=== PATIENT | male | born 1940 | race Caucasian/White ===

== ENCOUNTER → 2018-10-28 | Outpatient (CLI) | payer MEDICARE, BC ==
[~2018-10-28] MED LIST: ACYCLOVIR 200200 MG PO; APAP500 PO; ASPIRIN81 M2 PO; BAYER CHEWABLE81 MG PO; CIPRO500 MG PO; LOPID600 MG PO; MAGNESIUM250 M1 PO; MAGNESIUM500 MG PO; MULTIVITAMINS PO; MULTIVITAMINS1 EAC7 PO; PRED FORTE 1% EY5 M1 OP; PREDNISONE 5 MG5 M1 PO; SODIUM CHLORIDE10 ML; XANAX2 MG PO; ZIRGAN5 GM OP; ZIRGAN5 GM OPHTHALMIC; ZOVIRAX OPHTHALMIC; ZOVIRAX800 MG PO
== END ==
LOC: M.RAD 10-21 11:22
DX: M51.16 Intervertebral disc disorders with radiculopathy, lumbar region (principal); M48.061 Spinal stenosis, lumbar region without neurogenic claudication; M47.26 Other spondylosis with radiculopathy, lumbar region; M85.89 Other specified disorders of bone density and structure, multiple sites

== ENCOUNTER 2019-01-31 18:07 | Emergency (ER) | payer MEDICARE, BC ==
[~2019-01-31] VITALS: Ht 177.8 cm; Wt 82.6 kg
[2019-01-31] MEDS ORDERED: XANAX 0.5 MG0.5 MG PO (18:28)
[2019-01-31] MEDS ORDERED: VIGAMOX3 ML TOP (19:13)
[2019-01-31 19:28] VITALS: BP 132/82
== END 2019-01-31 19:29 | disposition home or self-care (01) ==
LOC: M.ERS 18:07
DX: H10.9 Unspecified conjunctivitis (principal); E78.00 Pure hypercholesterolemia, unspecified; Z87.442 Personal history of urinary calculi; Z85.51 Personal history of malignant neoplasm of bladder

== ENCOUNTER 2019-04-13 07:00 | Inpatient (IN) | payer MEDICARE, BC ==
[2019-04-02 08:50] LABS: ABSOLUTE EOSINOPHILS 0.1 thou/uL (0.0-0.7); ABSOLUTE LYMPHOCYTES 5.6 thou/uL (0.8-5.3); ABSOLUTE MONOCYTES 0.9 thou/uL (0.0-1.2); ABSOLUTE NEUTROPHILS 5.8 thou/uL (1.6-8.1); BASOPHILS 0.3 %; EOSINOPHILS 1.2 %; HEMATOCRIT 45.2 % (42.0-52.0); HEMOGLOBIN 15.2 gm/dL (14.0-18.0); LYMPHOCYTES 44.7 %; MCH 30.8 pg (26.0-34.0); MCHC 33.6 g/dL (28.0-37.0); MCV 91.5 fL (80.0-100.0); MONOCYTES 7.4 %; MPV 8.7 fl. (7.2-11.1); NUCLEATED RBCS 0 /100WBC; PLATELET COUNT* 252 thou/uL (150-400); POLYS 46.4 %; RBC 4.94 mil/uL (4.50-6.00); RDW-CV 14.3 % (10.5-14.5); WBC 12.4 thou/uL (4.0-11.0)
[2019-04-02 08:56] LABS: PROTIME 10.7 Seconds (9.20-11.50)
[2019-04-02 09:07] LABS: CALCIUM 9.5 mg/dL (8.5-10.1); CREATININE 1.2 mg/dL (0.6-1.3); POTASSIUM 4.1 mmol/L (3.5-5.1); TOTAL BILIRUBIN 0.6 mg/dL (<0.1-1.0); TOTAL PROTEIN 7.8 g/dL (6.4-8.2)
[2019-04-02 10:36] LABS: ESR (SEDRATE) 5 mm/hr (0-20)
--- NOTE | 2019-04-02 11:55 | EKG ---
[place] [address] ELECTROCARDIOGRAM REPORT Name: FABRIZIO LEE Room: PRE IN [facility].#: [id number] Admission: Attend Phys: Karen Jung Discharge: Date of : 36 Report #: [id number] THIS REPORT FOR: //name// [facility] Test Date: 2019-04-02 Test Time: 09:01:43 Pat Name: FABRIZIO LEE Department: Room: Gender: M Supervisor Inspection: : 1940 Requested By: Philip Hammer Order Number: [id number] MD: Harrison Vaughan Measurements Intervals [place] Rate: 71 P: 29 ND: 180 QRS: -5 QRSD: 144 T: 17 QT: 397 QTc: 432 Interpretive Statements Sinus rhythm Right bundle branch block Compared to ECG 10/27/2013 07:47:51 Sinus bradycardia no longer present Electronically Signed On 04-02-2019 11:55:30 CDT by Harrison Vaughan [email or web address] <ELECTRONICALLY SIGNED> By: Marina Vaughan MD, [facility] 04/02/19 1155 0901 0 Marina Vaughan MD, FACC /EPI
[~2019-04-13] VITALS: Ht 177.8 cm; Wt 83.5 kg
--- NOTE | ~2019-04-13 | OP ---
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 PROCEDURE PERFORMED: Right total hip arthroplasty. SURGEON: Philip Hammer D.O. NURSING PROGRAM MANAGER: Boyd Abdi D.O. ANESTHESIA: General and local. ESTIMATED BLOOD LOSS: 275 mL. SPECIMENS: None. COMPLICATIONS: None. DISPOSITION: Stable to PACU. IMPLANTS USED: Biomet total hip system with a 58 mm G7 shell, a size 16 high offset femoral stem, a -3 mm neck, and a high wall polyethylene liner. INDICATIONS FOR PROCEDURE: The patient is a pleasant 79-year-old male who has known degenerative joint disease of the right hip, which he has treated with conservative measures and these have failed. He continues to have pain, which affects his ADLs and he is becoming more sedentary. We discussed risks, benefits, complications, alternatives, and indications with him. He voiced understanding and wished to proceed with surgery. DESCRIPTION OF PROCEDURE: The patient was seen in the preoperative holding area. Correct operative site was marked. Verbal and written consents were obtained. He was transferred to the operative suite and placed supine on the operating table, given the benefit of general anesthesia by the Anesthesia team. Right hip was then prepped and draped in a normal sterile [place] [id number] OPERATIVE REPORT Name: Susan LEE Room: [address] IN [facility]#: [id number] Admission: 04/13/19 Attend Phys: Karen Jung Discharge: Date of : 36 Report #: [id number] performed. All those in attendance were in agreement with the correct operative site and procedure to be performed. A #12 blade scalpel was used to incise the skin at the appropriate level. This was taken down to the tensor fascia guillermo using electrocautery. I then used a new #10 blade scalpel to incise the fascia and this was released both proximally and distally using Metzenbaum scissors. Blunt dissection was then carried down to the level of the anterior hip and a #7 retractor was placed in the superior neck as well as a #6 retractor in the inferior neck. We then fully cauterized the circumflex vessels. Actually, these were bluntly dissected and these were then cauterized using electrocautery. The anterior capsule was then fully cauterized, then a Grimaldo was used to reflect the indirect head of the rectus and a #9 retractor was placed on the anterior acetabulum. The anterior capsule was then excised using electrocautery and retractors were once again placed on the superior and inferior neck appropriately. We then used an oscillating saw to perform a femoral neck cut and femoral head was removed. We then used electrocautery to obliterate and cauterize the fovea and labrum was excised using electrocautery as well. A thorough sterile irrigation was used and a reamer was placed for appropriate size shell. Fluoroscopy was used to verify depth and positioning of this and then a final 58-mm stem shell was malleted into place. Appropriate length 25 and 30-mm screws were then placed and verified via fluoroscopy. A high wall liner was malleted into place, found to be stable. We then turned our attention to the proximal femur. The leg was placed in 125 degrees of external rotation, extended, and adducted across the body. The proximal femur was then prepared using a box osteotome followed by the rattail rasp and then broached it up to the appropriate size 16 broach. We then trialed a high offset size 16 femoral stem with a -3 neck. Reduction was performed. Hip was taken through range of motion, found to be stable. Fluoroscopic images were used to verify length. Dislocation was performed. Trial implants were removed and the wound and proximal femur were thoroughly irrigated with sterile saline. Vancomycin powder was placed around the femur and then the wound and then a final size 16 high offset stem was malleted into place. A final -3 mm neck with a 36-mm head was then malleted into place, found to be stable and final reduction was performed. Final x-rays were taken and saved to the chart via fluoroscopy. The wound was thoroughly irrigated with sterile saline. The fascia was reapproximated with #1 Stratafix and then the skin was closed using 2-0 Monocryl in a subcuticular inverted fashion followed by running subcuticular 3-0 Stratafix. Dermabond skin glue was placed over the wound. This was allowed to dry and a sterile Mepilex dressing was placed. The patient was awoken from anesthesia and transferred to PACU in stable [place] [id number] OPERATIVE REPORT Name: Susan LEE Room: [address]#: [id number] Admission: 04/13/19 Attend Phys: Karen Jung Discharge: Date of : 36 Report #: [id number] counts were correct at the end of the case x 2. I attstephanie Hammer was present through all critical decision making aspects of the case. By: [id number] Hammer DO /logan
[~2019-04-13 07:00] MED LIST changes: +FOSAMAX 70 MG T70 MG PO; +LATANOPROST 0.2.5 ML TOP; +VIGAMOX3 ML TOP; +VITAMINC500 PO; +XANAX 0.5 MG0.5 MG PO
[2019-04-13 11:16] VITALS: BP 148/86
--- NOTE | 2019-04-13 17:57 | NUR ---
PT ARRIVED FROM PACU ABOUT 1720. A&Ox 2, DROWSY FROM SURGERY. BLIND IN L EYE. HARD OF HEARING. DRESSING C/D/I. VITALS STABLE. TEDs, SCDs AND PULSE OX IN PLACE. ON RA. HAS NOT AMBULATED DURING SHIFT. TOLERATING FOOD AND DRINK. HAS URINATED. FAMILY IN ROOM. DENIED PAIN. DENIED N/V. FALL PRECAUTIONS IN PLACE. CALL LIGHT WITHIN REACH. WILL CONTINUE TO MONITOR.
[2019-04-13 18:14] VITALS: BP 128/64
[2019-04-13 20:40] VITALS: BP 137/74
[2019-04-14] VITALS: BP 119/67
[2019-04-14 04:00] VITALS: BP 124/63
--- NOTE | 2019-04-14 05:39 | NUR ---
PT SLEPT OFF AND ON OVERNIGHT, AWAKES SLIGHTLY CONFUSED-TAKING OFF GOWN AND PULLING GENTLY AT IV AND PULSE OX LINES. REORIENTS EASILY. PT BLIND IN LEFT EYE. R WRIST IVF INFUSING PER PUMP, ABX GIVEN ORDERED. R HIP MEPILEX CDI, SIENNA HOSE ON BLE THIGH HIGH. FOOT PUMP SCDS ON AND OPERATING. ROOM AIR. VSS. USING URINAL TO VOID WITH ASSIST. CHILKAT. CONT PULSE ON AND OPERATING WITHOUT ALARMING OVERNIGHT. AM LABS. ABLE TO USE CALL LITE WITH COTTON BALL ASSIST TO TOUCH. BED ALARM ON FOR SAFETY. FREQUENT OBSERVATION.
[2019-04-14 05:54] LABS: HEMATOCRIT 36.8 % (42.0-52.0); HEMOGLOBIN 12.6 gm/dL (14.0-18.0); MCH 30.7 pg (26.0-34.0); MCHC 34.3 g/dL (28.0-37.0); MCV 89.6 fL (80.0-100.0); MPV 9.1 fl. (7.2-11.1); NUCLEATED RBCS 0 /100WBC; PLATELET COUNT* 212 thou/uL (150-400); RDW-CV 14.2 % (10.5-14.5); WBC 21.3 thou/uL (4.0-11.0)
[2019-04-14 06:21] LABS: CREATININE 1.2 mg/dL (0.6-1.3); MAGNESIUM 2.1 mg/dL (1.8-2.4)
[2019-04-14 06:49] LABS: ABSOLUTE MONOCYTES 0.6 thou/uL (0.0-1.2); ABSOLUTE NEUTROPHILS 14.7 thou/uL (1.6-8.1); PLATELET ESTIMATE ADEQUATE
[2019-04-14 07:49] VITALS: BP 125/64
--- NOTE | 2019-04-14 15:00 | NUR ---
PT..UP IN CHAIR. AT BEDSIDE. TOLD PT.AND THERAPIST RECOMMENDED HE STAY ANOTHER NIGHT. HE DID NOT LIKE THIS. HE SAID I'LL ONLY STAY IF I CAN GO IN THE BATHROOM TO GO TO THE BATHROOM. TOLD HIM I WOULD TELL HIS NURSE. HE LIVES WITH HIS WHO WILL BE HELPING HIM NEEDED. SEEMED CONFUSED ON SOME THINGS. SAID HE GETS CONFUSED IN THE EVENINGS AT HOME. HE IS INDEPENDENT AT HOME WITH ADLS. HE DOES NOT DRIVE. HE HAS PARTIAL EYESIGHT IN L EYE FROM SHINGLES. SHE SAID HE IS STILL UNDER TX FOR HIS EYE. CM HAD CALLED IN PRESCRIPTION FOR ELIQUIS, WRITTEN, TO PT.'S PHARMACY. COPAY IS $54. INFORMED . SHE SAID WELL HE NEEDS IT SO WE WILL AFFORD IT. SHE SAID THEY PLAN ON GOING TO OUTPT.THERAPY AT [facility].
[2019-04-14 15:56] VITALS: BP 107/55
--- NOTE | 2019-04-14 15:56 | NUR ---
ASSESSMENT COMPLETE. PT CONFUSED MOST OF THE DAY, REORIENTS AND REDIRECTS WELL. PHYSICAL THERAPY AND OCCUPATIONAL THERAPY DONE TODAY. PT IN CHAIR MOST OF THE DAY, SHOWER DONE. PT GIVEN IV ABX SCHEDULED. PT USES URINAL NEEDED. RIGHT HIP DRESSING INTACT, ICE PACK APPLIED. PT IS UP ONE ASSIST WITH WALKER AND GAIT BELT. IV FLUIDS COMPELTED, SALINE LOCKED IN LEFT AC. SEE ASSESSMENT AND VITALS FOR OTHER DETAILS. CALL LIGHT WITHIN REACH, WILL CONTINUE PLAN OF CARE
[2019-04-14 20:40] VITALS: BP 122/48
[2019-04-15 04:22] LABS: HEMATOCRIT 34.2 % (42.0-52.0); HEMOGLOBIN 11.6 gm/dL (14.0-18.0)
--- NOTE | 2019-04-15 06:00 | NUR ---
patient reported no pain or nausea. HE WAS ABLE TO GET UP TO BEDSIDE COMMODE SEVERAL TIMES AND SLEPT THROUGH SHIFT. HAS SOME CONFUSION BUT OTHER NAJERA CALM/NO WORSENING OF CONDITIONS. WILL CONTINUE TO MONITOR
[2019-04-15] MEDS ORDERED: ELIQUIS2.5 MG PO (10:10)
[2019-04-15] MEDS ORDERED: OXYCODONE HCL 55 MG PO (10:11)
[2019-04-15 10:19] VITALS: BP 122/48
[2019-04-15] MEDS ORDERED: ASPIRIN325 PO (10:25)
[2019-04-15] MEDS ORDERED: COLACE100 MG PO (10:26)
--- NOTE | 2019-04-15 12:00 | NUR ---
SPOKE WITH PT.AND ABOUT RECOMMENDATIONS FOR SNF AT DISCHARGE. BOTH ARE AGREEABLE AND CHOSE [facility] IN [place], IT IS CLOSE TO THEIR HOME. FAXED REFERRAL FOR SNF TO ADMISSIONS . CALLED A LITTLE LATER TO SEE IF THEY RECEIVED. [facility] SAID THEY DID NOT. REFAXED INFORMATION TO THEM
[2019-04-15 16:00] VITALS: BP 119/62
--- NOTE | 2019-04-15 18:01 | NUR ---
PATIENT RESTING UP IN CHAIR. PATIENT IS UP WITH MODERATE ASSIST WITH GAIT BELT. PATIENT HAS DENIED NEED FOR PAIN MEDICATION TODAY. PATIENT DISCHARGE HELD TO GO TO ALF RATHER THAN HOME. PATIENT DENIES ANY NEEDS AT THIS TIME. CALL LIGHT WITHIN REACH. CHAIR ALARM ON.
[2019-04-15 20:50] VITALS: BP 124/64
--- NOTE | 2019-04-16 06:48 | NUR ---
VITALS STABLE RA. MEDS GIVEN ORDERED. DENIED PAIN. HAD BM THIS SHIFT. UP TO THE BATHROOM WITH MODERATE ASSIST WITH WALKER AND GAIT BELT. HOURLY ROUNDING COMPLETED. WILL CONTINUE TO MONITOR.
[2019-04-16 08:00] VITALS: BP 126/53
--- NOTE | 2019-04-16 10:07 | NUR ---
CALLED [facility] AND SPOKE WITH ALIA. SHE HAD JUST GOTTEN IN AND WAS GOING TO START REVIEWING FAX ON PT. SHE SAID SHE WOULD CALL CM BACK WITH IN THE HR.
--- NOTE | 2019-04-16 11:45 | NUR ---
[facility] CALLED AND SAID THEY CAN ACCEPT PT.TO A SKILLED BED TODAY. FAXED HER DISCHARGE ORDERS,DISCHARGE MED LIST AND ORTHO ORDERS . CM ARRANGED VAN TRANSPORTATION FOR [id number]. INFORMED PT.AND . CHART COPIED TO GO WITH HIM BY Emma ZUNIGA RN WILL CALL REPORT.
--- NOTE | 2019-04-16 15:10 | NUR ---
PATIENT DISCHARGED TO [facility]. REPORT CALLED TO OMARI. COPY OF CHART AND DISCHARGE ORDERS GIVEN TO TRANSPORTER. PATIENT BELONGINGS PACKED BY . IV REMOVED. PATIENT DENIES ANY FURTHER NEEDS. PATIENT TAKEN BY WHEELCHAIR VAN AT THIS TIME.
== END 2019-04-16 15:10 | DRG 470 ==
LOC: M.PRE 07:00 → M.TBA 09:26 → M.ORTHSURG 09:26 → M.PRE 10:28 → M.ORTHSURG 17:20
PROVIDERS: Family Medicine; Orthopaedic Surgery; ADMIT Internal Medicine
PROC: 0SR904Z Replacement of Right Hip Joint with Ceramic on Polyethylene Synthetic Substitute, Open Approach (ICD-10-PCS; principal; 2019-04-13)
DX: M16.11 Unilateral primary osteoarthritis, right hip (principal); D62 Acute posthemorrhagic anemia; H40.1111 Primary open-angle glaucoma, right eye, mild stage; E78.5 Hyperlipidemia, unspecified; H54.62 Unqualified visual loss, left eye, normal vision right eye; G62.9 Polyneuropathy, unspecified; N18.3 Chronic kidney disease, stage 3 (moderate); Z85.51 Personal history of malignant neoplasm of bladder

== ENCOUNTER → 2020-06-27 | Outpatient (CLI) | payer MEDICARE, BC ==
[~2020-06-27] MED LIST changes: +ASPIRIN325 PO; +COLACE100 MG PO; +ELIQUIS2.5 MG PO; +OXYCODONE HCL 55 MG PO
== END ==
LOC: M.RAD 10:55
PROVIDERS: ATTEND Internal Medicine
DX: K11.7 Disturbances of salivary secretion (principal); R13.10 Dysphagia, unspecified